=== PATIENT | male | born 1985 | race Caucasian/White ===

== ENCOUNTER 2019-12-12 00:27 | Emergency (ER) | payer OTHER ==
[~2019-12-12] VITALS: Ht 175.3 cm; Wt 86.2 kg
== END 2019-12-12 09:11 ==
LOC: ER 00:27
DX: S01.122A Laceration with foreign body of left eyelid and periocular area, initial encounter (principal); F10.10 Alcohol abuse, uncomplicated; E86.0 Dehydration; Z20.828 Contact with and (suspected) exposure to other viral communicable diseases; W18.09XA Striking against other object with subsequent fall, initial encounter; Y93.89 Activity, other specified; Y92.098 Other place in other non-institutional residence as the place of occurrence of the external cause; Y99.8 Other external cause status

== ENCOUNTER 2019-12-20 07:43 | Emergency (ER) | payer OTHER ==
[~2019-12-20] VITALS: Ht 175.3 cm; Wt 83.9 kg
== END 2019-12-20 08:36 | disposition home or self-care (01) ==
LOC: ER 07:43
DX: Z48.02 Encounter for removal of sutures (principal)

== ENCOUNTER 2019-12-25 06:32 | Emergency (ER) | payer OTHER ==
[~2019-12-25] VITALS: Ht 175.3 cm; Wt 83.9 kg
== END 2019-12-25 08:48 | disposition home or self-care (01) ==
LOC: ER 06:32
DX: Z48.02 Encounter for removal of sutures (principal)